=== PATIENT | female | born 1960 | race African-American/Black ===

== ENCOUNTER 2021-01-31 16:23 | Emergency (ER) | payer MEDICAID ==
[~2021-01-31] VITALS: Ht 154.9 cm; Wt 70.0 kg
[2021-01-31 17:38] LABS: CHLORIDE 108 mEq/L (98-107)
[2021-01-31 17:54] LABS: BASOPHILS % 0.4 % (0.0-2.0); EOSINOPHILS % 4.3 % (0.0-5.0); HEMATOCRIT. 40.3 % (36.0-48.0); HEMOGLOBIN. 13.6 g/dL (12.0-16.0); LYMPHOCYTES % 11.8 % (20.0-50.0); MEAN CORPUSCULAR HEMOGLOBIN 29.4 pg (28.0-32.0); MEAN CORPUSCULAR VOLUME 86.7 fL (81.0-99.0); MEAN PLATELET VOLUME 9.5 fl (7.4-10.4); MONOCYTES % 4.7 % (2.0-8.0); NEUTROPHILS % 78.8 % (40.0-76.0); PLATELET 246 x1000/uL (130-400); RED BLOOD CELL COUNT 4.65 mill/uL (4.2-5.4)
[2021-01-31] MEDS ORDERED: IPRATROPIUM/ALBUTEROL 0.5-3(2.5)MG/3ML NEB HHN ONE (19:45)
[2021-01-31] MEDS ORDERED: BENZ-16 MT (20:19)
[2021-01-31 20:50] VITALS: BP 156/88
[2021-01-31] MEDS ORDERED: OXYMETAZOLINE HCL NASAL SPRAY 15ML BOTHNSTRLS SCH (21:00)
== END 2021-01-31 21:03 | disposition home or self-care (01) ==
LOC: ER 16:23
DX: R05 Cough (principal); J30.9 Allergic rhinitis, unspecified; I10 Essential (primary) hypertension
CPT/HCPCS: 36415; 71045; 80053; 83880; 84484; 85025; 93005; 94640; 99285; Z7610

== ENCOUNTER 2021-02-14 11:25 | Emergency (ER) | payer MEDICAID ==
[~2021-02-14] VITALS: Ht 154.9 cm; Wt 68.0 kg
[~2021-02-14 11:25] MED LIST: BENZ-16 MT
[2021-02-14] MEDS ORDERED: VISCOUS LIDOCAINE 2% 15 ML UDC MM PRN (12:30)
[2021-02-14] MEDS ORDERED: MAGNESIUM/ALUMINUM HYDROXIDE/SIMETHICONE 30ML UDC PO ONE (12:30)
[2021-02-14] MEDS ORDERED: FAMOTIDINE 20MG TABLET PO ONE (12:30)
[2021-02-14] MEDS ORDERED: MAG-55 MT (13:22)
[2021-02-14] MEDS ORDERED: FAMO-135 MT (13:22)
[2021-02-14 13:48] VITALS: BP 140/76
== END 2021-02-14 13:49 | disposition home or self-care (01) ==
LOC: ER 11:59
DX: R10.13 Epigastric pain (principal); K21.9 Gastro-esophageal reflux disease without esophagitis; Z88.5 Allergy status to narcotic agent
CPT/HCPCS: 99283

== ENCOUNTER 2022-06-06 20:14 | Emergency (ER) | payer MEDICAID, OTHER ==
[~2022-06-06] VITALS: Ht 152.4 cm; Wt 71.0 kg
[~2022-06-06 20:14] MED LIST changes: +AZIT250T12 MT; +FAMO-135 MT; +MAG-55 MT
[2022-06-06 23:40] LABS: HEMATOCRIT 42.3 % (36.0-48.0); MEAN CORPUSCULAR HEMOGLOBIN 28.7 pg (28.0-32.0); MEAN CORPUSCULAR VOLUME 86.7 fL (81.0-99.0); PLATELET 335 x1000/uL (130-400); RED BLOOD CELL COUNT 4.87 mill/uL (4.2-5.4); RED CELL DISTRIBUTION WIDTH 13.7 % (11.6-14.6)
[2022-06-07 00:52] VITALS: BP 132/88
== END 2022-06-07 01:45 | disposition home or self-care (01) ==
LOC: ER 20:14
DX: N81.10 Cystocele, unspecified (principal); R00.2 Palpitations; R03.0 Elevated blood-pressure reading, without diagnosis of hypertension
CPT/HCPCS: 36415; 82962; 85027; 93005; 99284